=== PATIENT | male | born 1985 | race Caucasian/White ===

== ENCOUNTER 2022-12-26 07:41 | Outpatient (CLI) | payer OTHER, SELFPAY | END 2022-12-26 07:42 | disposition home or self-care (01) | LOC: NFLDREF 12-28 10:10 | PROVIDERS: PCP Family Medicine; Referring Provider Family Medicine; Visit Provider Family Medicine | DX: Z13.1 Encounter for screening for diabetes mellitus (principal); Z13.6 Encounter for screening for cardiovascular disorders | CPT/HCPCS: 80061; 82947 ==

== ENCOUNTER 2024-01-31 13:36 | Outpatient (CLI) | payer BC, SELFPAY | END 2024-01-31 13:37 | disposition home or self-care (01) | PROVIDERS: PCP Family Medicine; Visit Provider Family Medicine | DX: Z00.00 Encounter for general adult medical examination without abnormal findings (principal); R73.01 Impaired fasting glucose; R63.4 Abnormal weight loss; Z13.1 Encounter for screening for diabetes mellitus | CPT/HCPCS: 82947; 84443 ==